=== PATIENT | female | born 2005 | race Hispanic/Latino ===

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

== ENCOUNTER 2025-04-08 09:30 | Emergency (ER) | payer OTHER, SELFPAY ==
[2025-04-08] MEDS ORDERED: Dexamethasone 10 MG/ML VIAL ONE (09:48)
[2025-04-08 10:29] LABS: MONO NEGATIVE CONTROL ZONE White (Negative) (White); MONO POSITIVE CONTROL Pink Line (Positive) (PINK/RED); Mononucleosis NEGATIVE (NEGATIVE)
== END 2025-04-08 11:14 | disposition home or self-care (01) ==
LOC: CSHERS 09:30
DX: J35.1 Hypertrophy of tonsils (principal); Z55.6 Problems related to health literacy
CPT/HCPCS: 36415; 86308; 87081; 87430; 99283; J1100